=== PATIENT | male | born 2000 | race Caucasian/White ===

== ENCOUNTER → 2022-09-03 | Outpatient (REF) | payer OTHER ==
[2022-09-03 18:09] LABS: APPEARANCE, URINE MANUAL CLOUDY (CLEAR); COLOR, URINE MANUAL LT YELLOW (YELLOW)
[2022-09-03 18:11] LABS: BILIRUBIN, URINE MANUAL NEGATIVE (NEGATIVE); BLOOD URINE MANUAL POSITIVE (NEGATIVE); GLUCOSE, URINE (UA) MANUAL NEGATIVE (NEGATIVE); KETONE, URINE MANUAL NEGATIVE (NEGATIVE); LEUKOCYTE ESTERASE, URINE MAN NEGATIVE (NEGATIVE); NITRITE, URINE MANUAL NEGATIVE (NEGATIVE); PROTEIN, URINE MANUAL TRACE mg/dL (NEGATIVE); UROBILINOGEN, URINE MANUAL NORMAL (NORMAL)
[2022-09-03 18:26] LABS: AMORPHOUS SEDIMENT, URINE MOD AMOUNT (NEGATIVE); BACTERIA, URINE NONE SEEN; HYALINE CAST, URINE NONE SEEN /lpf (0-1); MUCUS, URINE SMALL AMOUNT (NEGATIVE); RBC, URINE 30-40 /hpf (0-3); SQUAMOUS EPITHELIAL CELL URINE SMALL AMOUNT /hpf (SMALL AMT); WBC, URINE 0-1 /hpf (0-3)
== END ==
LOC: M SMT 16:44
PROVIDERS: ATTEND Physician Assistant
DX: R82.89 Other abnormal findings on cytological and histological examination of urine (principal); R31.0 Gross hematuria

== ENCOUNTER → 2022-09-27 | Outpatient (CLI) | payer OTHER | LOC: M LABSMTC 08:38 | PROVIDERS: ATTEND Anesthesiology | DX: Z01.818 Encounter for other preprocedural examination (principal) ==

== ENCOUNTER 2022-09-30 10:53 | Day surgery (SDC) | payer OTHER ==
[~2022-09-30] VITALS: Ht 185.4 cm; Wt 123.7 kg
[~2022-09-30 10:53] MED LIST: ceFAZolin SOD 2 GM in IV 1 EA IV ONE
[2022-09-30] MEDS ORDERED: LR 1,000 ML IV SCH ×2 (13:00→16:10)
[2022-09-30] MEDS ORDERED: MIDAZOLAM INJ 2MG/2ML VIAL As Ordered ONE (13:00)
[2022-09-30] MEDS ORDERED: LIDOCAINE 1% SDV 5ML VIAL SC PRN (13:00)
[2022-09-30] MEDS ORDERED: fentaNYL 100 MCG/2 ML INJECTION As Ordered ONE ×2 (13:01→15:59)
[2022-09-30] MEDS ORDERED: ONDANSETRON 4MG 2ML VIAL As Ordered ONE (13:05)
[2022-09-30] MEDS ORDERED: LIDOCAINE 2% 100MG/5ML SDV (FOR ANES.) As Ordered ONE (13:05)
[2022-09-30] MEDS ORDERED: propofoL 200 MG/20 ML VIAL As Ordered ONE ×2 (13:05→15:05)
[2022-09-30] MEDS ORDERED: ROCURONIUM BROMIDE 50MG/5ML VIAL As Ordered ONE ×2 (13:49→15:28)
[2022-09-30] MEDS ORDERED: SUGAMMADEX SODIUM 500 MG/5 ML VIAL (BRIDION) As Ordered ONE (15:36)
[2022-09-30] MEDS ORDERED: KETOROLAC 60MG 2ML VIAL As Ordered ONE (15:49)
[2022-09-30] MEDS ORDERED: HYDROMORPHONE HCL 0.5 MG/ 0.5 ML SYRINGE IV PRN (16:10)
[2022-09-30] MEDS ORDERED: ONDANSETRON 4MG 2ML VIAL IV PRN (16:10)
[2022-09-30] MEDS ORDERED: MEPERIDINE 25 MG/ML 1ML VIAL IV PRN (16:10)
[2022-09-30] MEDS ORDERED: METOCLOPRAMIDE INJ 10MG/2ML VIAL IV PRN (16:10)
[2022-09-30] MEDS ORDERED: fentaNYL 100 MCG/2 ML INJECTION IV PRN (16:10)
[2022-09-30] MEDS ORDERED: HYDR-3713 PO (16:15)
[2022-09-30] MEDS ORDERED: PYRI1TAB5 PO (16:15)
[2022-09-30] MEDS ORDERED: BACT800T5 PO (16:15)
[2022-09-30] MEDS ORDERED: OXYB5TAB10 PO (16:15)
[2022-09-30] MEDS: oxyCODONE 5MG TAB PO PRN ×2 (16:34→17:06)
[2022-09-30] MEDS ORDERED: LIDOCAINE 2% JELLY 6ML SYRINGE TOP ONE (16:45)
[2022-09-30] MEDS ORDERED: LIDOCAINE 2% JELLY 6ML SYRINGE As Ordered ONE (17:02)
[2022-09-30 18:00] VITALS: BP 147/82
[2022-09-30] MEDS ORDERED: ACET-683 PO (23:17)
[2022-10-01] MEDS ORDERED: OXYB5TAB10 PO (02:22)
[2022-10-01] MEDS ORDERED: HYDR-4571 PO (02:22)
[2022-10-01] MEDS ORDERED: BACT800T5 PO (02:22)
[2022-10-01] MEDS ORDERED: ACET-897 PO (02:22)
[2022-10-01] MEDS ORDERED: PHEN-501 PO (02:22)
== END 2022-09-30 18:15 | disposition home or self-care (01) ==
LOC: M SDC 10:53
PROVIDERS: ATTEND Urology
DX: C67.9 Malignant neoplasm of bladder, unspecified (principal); R31.0 Gross hematuria; R79.89 Other specified abnormal findings of blood chemistry; Z88.0 Allergy status to penicillin; Z79.2 Long term (current) use of antibiotics
CPT/HCPCS: 52240; 88305; J0690; J1100; J1170; J2250; J2405; J3010

== ENCOUNTER → 2023-02-01 | Outpatient (REF) | payer OTHER ==
[~2023-02-01] MED LIST changes: +ACET-683 PO; +ACET-897 PO; +BACT800T5 PO; +HYDR-3713 PO; +HYDR-4571 PO; +OXYB5TAB10 PO; +PHEN-501 PO; +PYRI1TAB5 PO; -ceFAZolin SOD 2 GM in IV 1 EA IV ONE
== END ==
LOC: M SMT 17:32
PROVIDERS: ATTEND Urology
DX: C67.9 Malignant neoplasm of bladder, unspecified (principal)

== ENCOUNTER 2023-05-16 07:47 | Day surgery (SDC) | payer OTHER ==
[~2023-05-16] VITALS: Ht 188 cm; Wt 131.1 kg
[~2023-05-16 07:47] MED LIST changes: +LevoFLOXacin IV 500 MG in IV 1 EA IV ONE; +UNRESOLVED CLARIFICATION ENTRY XX SCH
[2023-05-16] MEDS ORDERED: LR 1,000 ML IV SCH ×2 (08:10→11:05)
[2023-05-16] MEDS ORDERED: MIDAZOLAM INJ 2MG/2ML VIAL As Ordered ONE (10:25)
[2023-05-16] MEDS ORDERED: ONDANSETRON 4MG 2ML VIAL As Ordered ONE (10:25)
[2023-05-16] MEDS ORDERED: dexmedeTOMIDine (4MCG/ML)200MCG/50ML BTL (PRECEDEX) As Ordered ONE (10:25)
[2023-05-16] MEDS ORDERED: LIDOCAINE 2% 100MG/5ML SDV (FOR ANES.) As Ordered ONE (10:25)
[2023-05-16] MEDS ORDERED: propofoL 200 MG/20 ML VIAL As Ordered ONE (10:25)
[2023-05-16] MEDS ORDERED: fentaNYL 100 MCG/2 ML INJECTION As Ordered ONE (10:25)
[2023-05-16] MEDS ORDERED: ACETAMINOPHEN 1000MG 100ML IV BAG As Ordered ONE (10:27)
[2023-05-16] MEDS ORDERED: HYDROMORPHONE HCL 0.5 MG/ 0.5 ML SYRINGE IV PRN (11:05)
[2023-05-16] MEDS ORDERED: ONDANSETRON 4MG 2ML VIAL IV PRN (11:05)
[2023-05-16] MEDS ORDERED: fentaNYL 100 MCG/2 ML INJECTION IV PRN (11:05)
[2023-05-16] MEDS ORDERED: oxyCODONE 5MG TAB PO PRN (11:05)
[2023-05-16] MEDS ORDERED: ACETAMINOPHEN TAB 650MG DOSE (2X325MG) PO PRN (11:15)
[2023-05-16 12:35] VITALS: BP 131/82; TEMP 97.6; O2SAT 96
== END 2023-05-16 12:35 | disposition home or self-care (01) ==
LOC: M SDC 07:47
PROVIDERS: ATTEND Urology
DX: C67.5 Malignant neoplasm of bladder neck (principal); Z87.891 Personal history of nicotine dependence; Z88.0 Allergy status to penicillin
CPT/HCPCS: 52234; 88305; J0131; J1100; J2250; J2405; J3010

== ENCOUNTER → 2023-08-29 | Outpatient (REF) | payer OTHER ==
[~2023-08-29] MED LIST changes: -LevoFLOXacin IV 500 MG in IV 1 EA IV ONE; -OXYB5TAB10 PO; +OXYB5TAB11 PO; -UNRESOLVED CLARIFICATION ENTRY XX SCH
== END ==
LOC: M SMT 12:28
PROVIDERS: ATTEND Urology
DX: C67.9 Malignant neoplasm of bladder, unspecified (principal)

== ENCOUNTER → 2023-12-05 | Outpatient (REF) | payer OTHER ==
[~2023-12-05] MED LIST changes: -OXYB5TAB11 PO; +OXYB5TAB14 PO
== END ==
LOC: M SMT 15:22
PROVIDERS: ATTEND Urology
DX: C67.9 Malignant neoplasm of bladder, unspecified (principal)

== ENCOUNTER 2023-12-23 08:48 | Day surgery (SDC) | payer OTHER ==
[~2023-12-23] VITALS: Ht 188 cm; Wt 128.1 kg
[2023-12-23] MEDS ORDERED: LIDOCAINE 2% 100MG/5ML SDV (FOR ANES.) As Ordered ONE (09:03)
[2023-12-23] MEDS ORDERED: ROCURONIUM BROMIDE 50MG/5ML VIAL As Ordered ONE (09:03)
[2023-12-23] MEDS ORDERED: SUGAMMADEX SODIUM 500 MG/5 ML VIAL (BRIDION) As Ordered ONE (09:03)
[2023-12-23] MEDS ORDERED: propofoL 200 MG/20 ML VIAL As Ordered ONE (09:03)
[2023-12-23] MEDS ORDERED: ONDANSETRON 4MG 2ML VIAL As Ordered ONE (09:03)
[2023-12-23] MEDS ORDERED: fentaNYL 100 MCG/2 ML INJECTION As Ordered ONE (09:06)
[2023-12-23] MEDS ORDERED: MIDAZOLAM INJ 2MG/2ML VIAL As Ordered ONE (09:06)
[2023-12-23] MEDS ORDERED: ceFAZolin SOD 3 GM in IV 1 EA IV ONE (09:45)
[2023-12-23] MEDS: ceFAZolin SOD 2 GM in IV 1 EA IV ONE (10:15)
[2023-12-23] MEDS: ceFAZolin 1GM VIAL As Ordered ONE (10:15)
[2023-12-23] MEDS ORDERED: ACETAMINOPHEN 1000MG 100ML IV BAG As Ordered ONE (10:16)
[2023-12-23] MEDS: mitoMYcin 40MG VIAL *UROLOGY INTRAVESIC ONE (10:29)
[2023-12-23] MEDS ORDERED: ONDANSETRON 4MG 2ML VIAL IV PRN (10:40)
[2023-12-23] MEDS ORDERED: LR 1,000 ML IV SCH (10:40)
[2023-12-23] MEDS ORDERED: fentaNYL 100 MCG/2 ML INJECTION IV PRN (10:40)
[2023-12-23] MEDS ORDERED: HYDROMORPHONE HCL 0.5 MG/ 0.5 ML SYRINGE IV PRN (10:40)
[2023-12-23] MEDS ORDERED: OXYB5TAB14 PO (10:49)
[2023-12-23] MEDS ORDERED: ceFAZolin SOD 1 GM in D5W MINI-BAG PLUS 50 ML IV ONE (10:50)
[2023-12-23] MEDS: oxyCODONE 5MG TAB PO PRN (11:34)
[2023-12-23] MEDS ORDERED: ACETAMINOPHEN TAB 650MG DOSE (2X325MG) PO PRN (12:50)
[2023-12-23 13:05] VITALS: BP 141/79; TEMP 97.9; O2SAT 93
[2023-12-23] MEDS: oxyBUTYnin 5 MG TAB PO PRN (13:13)
== END 2023-12-23 13:05 | disposition home or self-care (01) ==
LOC: M SDC 08:48
PROVIDERS: ATTEND Urology
DX: C67.3 Malignant neoplasm of anterior wall of bladder (principal); N30.80 Other cystitis without hematuria; Z88.0 Allergy status to penicillin; Z87.891 Personal history of nicotine dependence
CPT/HCPCS: 52234; 88305; A4215; C1769; J0131; J0690; J1100; J2250; J2405; J3010; J9280

== ENCOUNTER → 2024-04-02 | Outpatient (REF) | payer OTHER | LOC: M SMT 17:06 | PROVIDERS: ATTEND Urology | DX: C67.9 Malignant neoplasm of bladder, unspecified (principal) ==

== ENCOUNTER → 2024-06-25 | Outpatient (REF) | payer OTHER | LOC: M SMT 13:28 | PROVIDERS: ATTEND Urology | DX: C67.9 Malignant neoplasm of bladder, unspecified (principal) ==

== ENCOUNTER → 2024-11-12 | Outpatient (REF) | payer OTHER | LOC: M SMT 17:04 | PROVIDERS: ATTEND Urology | DX: C67.9 Malignant neoplasm of bladder, unspecified (principal) ==

== ENCOUNTER → 2025-05-14 | Outpatient (REF) | payer BC, OTHER | LOC: M SMT 13:14 | PROVIDERS: ATTEND Urology | DX: C67.9 Malignant neoplasm of bladder, unspecified (principal) ==